=== PATIENT | female | born 1970 | race Caucasian/White ===

== ENCOUNTER 2021-05-10 20:51 | Emergency (ER) | payer OTHER, SELFPAY ==
[2021-05-10 20:52] VITALS: BP 174/93; PULSE 80; RESP 16; TEMP 35.8; O2SAT 99; BMI 23.8
--- NOTE | 2021-05-10 21:06 | EKG12_ITS ---
Test Reason : ARM PAIN Blood Pressure : / mmHG Vent. Rate : 068 BPM Atrial Rate : 068 BPM P-R Int : 138 ms QRS Dur : 082 ms QT Int : 390 ms P-R-T Axes : 025 069 062 degrees QTc Int : 414 ms Normal sinus rhythm Normal ECG Confirmed by DARIN BARNHART, PEREZ ([id number]), writer editor MAYDA KAUFMAN ([id number]) on 05/13/2021 10:32:25 AM Referred By: MARION Confirmed By:PEREZ WEBSTER MD
--- NOTE | 2021-05-10 21:07 | EX.ED.UPPERE ---
HPI History of Present Illness Chief Complaint: Upper Extremity Injury Narrative Narrative: Patient who denies significant past medical history presents with her because of left arm pain and numbness that she has had intermittently since yesterday. She states that she was working, performing some sort of activity and felt left arm numbness and tingling. It radiated upward. Today, is gotten worse. She denies any headache. No neck pain. No fevers or chills. She then started having anxiety about it and stated that she had pain across her chest, and up the left side of her neck to her jaw. She denies any nausea or vomiting. No diaphoresis. She thinks she may have felt short of breath and had occasional chest discomfort across her chest. She denies any leg swelling. No other symptoms. She states her father has coronary artery disease but no one has had a heart attack less than age 55. She has not seen a primary care physician in quite some time. PFSH PFS Medical History no medical history Home Medications NK 05/10/21 [History Last Taken Unknown] Allergy/AdvReac Type Severity Reaction Status Date / Time No Known Allergies Allergy Verified 05/10/21 20:55 Social History Smoking Status: Never smoker ROS ROS ED ROS Narrative Constitutional: No fever, no chills. HEENT: No sore throat. Positive left-sided neck pain. No loss of vision. No rhinorrhea. Cardiovascular: Occasional chest pain. No palpitations. No pedal edema. Respiratory: No cough, questionable shortness of breath. Abdominal: No abdominal pain. No nausea. No vomiting. Genitourinary: No dysuria. No hematuria. Musculoskeletal: No myalgias. No arthralgias. Neurologic: No headaches. No dizziness. No lightheadedness. Paresthesias left arm. Skin: No rash. No change in color. Psychiatric: No depression. No anxiety. EXAM Physical Exam Narrative Exam Narrative: Afebrile. Vital signs noted. HEENT: Normocephalic. Atraumatic. PERRL, EOMI. Neck soft and supple. No point tenderness or step off. Full range of motion of neck without pain. Cardiovascular: Regular rate and rhythm. No murmurs, rubs, or gallops appreciated. Respiratory: No tachypnea. Lungs clear to auscultation bilaterally. Gastrointestinal: Abdomen soft, nontender, with normoactive bowel sounds. No rebound or guarding. Neurological: Awake. Alert. Nonfocal, nonlateralizing. Skin: No rash. Normal color. No pallor. Musculoskeletal: No pedal edema. Full range of motion extremities. Const Vital Signs: 05/10/21 20:52 Temperature 96.5 F L Temperature Source Temporal Pulse Rate 80 Respiratory Rate 16 Blood Pressure 174/93 H Blood Pressure Mean 120 Pulse Ox 99 Oxygen Delivery Method Room Air MDM MDM MDM Narrative Medical decision making narrative: Comprehensive work-up was pursued. Her symptoms do not necessarily sound like she is having left cervical radiculopathy, but it is still in the differential diagnosis. Chest pain work-up was pursued. Currently she has a heart score of 2 for her age and perhaps her history being slightly to moderately suspicious. She denies any coronary artery disease risk factors. Her blood pressure is elevated, but she does not have a diagnosis of hypertension. Chest x-ray shows no acute process. Initial high-sensitivity troponin is negative. CBC is grossly normal. Basic metabolic profile shows glucose elevated at 131 with a normal anion gap. At this point in time, she has a low heart score. Her second troponin will be checked by the oncoming physician, Dr. King. I feel that should it be negative she could be discharged home to follow-up with her primary care physician. She should be referred to 1 as she states she does not necessarily have a primary care physician. Patient currently is in stable condition. Lab Data Attestation: I reviewed the patient's lab results. Discharge Plan Triage Chief Complaint: Upper Extremity Injury ED Provider: Pravin Joseph Dx/Rx/DC Orders Prescriptions: No Action NK RF: 0 Primary Care Provider: Care Physician,No Primary
[2021-05-10 21:17] VITALS: BP 159/103; PULSE 80
[2021-05-10] MEDS: Nitroglycerin SL (ED/IMG/CATH) 0.4 MG TABLET SL (21:17)
[2021-05-10] MEDS: Aspirin 81 MG TAB.CHEW 324 MG PO (21:17)
[2021-05-10 21:19] LABS: Absolute Lymphocyte Count 2.54 X10^3/uL (0.83-4.51); Absolute Neutrophil Count 5.3 X10^3/uL (2.0-7.7); Basophil# 0.03 X10^3/uL; Basophil% 0.4 % (0-1); Eosinophil# 0.07 X10^3/uL; Eosinophils% 0.8 % (0-5); Hematocrit 39.2 % (37-47); Hemoglobin 13.3 g/dL (12.0-15.0); Lymphocyte # 2.54 X10^3/ul (0.83-4.51); Lymphocyte % 29.8 % (19-41); Mean Corp Hgb Conc 33.9 g/dL (32-36); Mean Corpuscular Hgb 31.2 pg (27.0-32.0); Mean Platelet Vol. 10.3 fl (6.2-12.0); Monocyte# 0.52 X10^3/uL; Monocyte% 6.1 % (0-10); NRBC Flagged by Analyzer 0 % (0-5); Neutrophil # 5.33 X10^3/uL (2.7-7.7); Neutrophil % 62.7 % (47-70); Platelet Count 232 K/mm3 (150-450); RBC Distribution Width CV 12.7 % (11.6-14.6); RBC Distribution Width SD 43.1 fl (35.1-43.9); Red Blood Count 4.26 M/mm3 (4.2-5.4); White Blood Count 8.5 K/mm3 (4.4-11.0)
--- NOTE | 2021-05-10 21:20 | RAD_ITS ---
INDICATION: chest pain EXAMINATION/TECHNIQUE: X-RAY - XR Chest 1 View COMPARISON: None. FINDINGS: The lungs are clear. The cardiomediastinal silhouette is unremarkable. No pleural effusion or pneumothorax. No acute osseous abnormalities. RAD/Chest 1 View (Portable) IMPRESSION: No acute radiographic abnormalities. Electronically Signed: Dawit Vasquez MD at 21:50 EST ,
[2021-05-10 21:36] LABS: Anion Gap 5 (5-15); BUN 12 mg/dL (7-18); Calcium,Total 8.5 mg/dL (8.5-10.1); Chloride 104 mmol/L (98-107); Creatinine, Serum 0.75 mg/dL (0.55-1.02); EST Glomerular Filtration Rate 86 mL/min (>60); Est Glom Filt Rate - Afr Amer 104 mL/min (>60); Estimated Creatinine Clearance 62.31 ml/min; Glucose 131 mg/dL (74-106); Potassium 3.6 mmol/L (3.5-5.1); Sodium Level 137 mmol/L (136-145); Troponin-I HS 3 pg/mL (3.0-54.0)
[2021-05-10 22:52] VITALS: BP 146/83; PULSE 74; RESP 18; O2SAT 98
[2021-05-10 23:41] LABS: Troponin-I HS 5 pg/mL (3.0-54.0)
[2021-05-11 00:13] VITALS: BP 151/83; PULSE 69; RESP 18
== END 2021-05-11 00:14 | disposition home or self-care (01) ==
PROVIDERS: Emergency Medicine; Emergency Provider Emergency Medicine; Visit Provider Emergency Medicine
DX: M79.602 Pain in left arm (principal); R20.0 Anesthesia of skin; R20.2 Paresthesia of skin; R07.89 Other chest pain; Z82.49 Family history of ischemic heart disease and other diseases of the circulatory system
CPT/HCPCS: 71045; 80048; 84484; 85025; 93005; 99285; A4216